=== PATIENT | male | born 1985 | race Asian ===

== ENCOUNTER 2023-07-20 05:16 | Emergency (ER) | payer MEDICAID ==
[~2023-07-20] VITALS: Ht 172.7 cm; Wt 90.0 kg
[2023-07-20 05:26] VITALS: TEMP 98; O2SAT 98
[2023-07-20] MEDS: SODIUM CHLORIDE 0.9% 1,000 ML IV ONE (06:19)
[2023-07-20] MEDS: METOCLOPRAMIDE HCL 10MG/2ML VIAL IV ONE (06:19)
[2023-07-20 06:21] VITALS: BP 127/84; PULSE 83; RESP 16
[2023-07-20] MEDS: KETOROLAC 30MG/ML VIAL IV STA (06:21)
[2023-07-20] MEDS ORDERED: IBUP-2028 PO (07:06)
== END 2023-07-20 07:14 | disposition home or self-care (01) ==
LOC: ER 05:16
DX: S06.0X0A Concussion without loss of consciousness, initial encounter (principal); Z88.0 Allergy status to penicillin; W01.0XXA Fall on same level from slipping, tripping and stumbling without subsequent striking against object, initial encounter; Y93.9 Activity, unspecified; Y92.89 Other specified places as the place of occurrence of the external cause; Y99.8 Other external cause status
CPT/HCPCS: 96361; 96374; 96375; 99284; J1885; J2765; J7030; Z7610